=== PATIENT | male | born 1985 | race Hispanic/Latino ===

== ENCOUNTER 2020-12-01 00:12 | Emergency (ER) | payer MEDICAID, OTHER ==
[~2020-12-01] VITALS: Ht 154.9 cm; Wt 69.9 kg
== END 2020-12-01 00:50 | disposition left against medical advice (07) ==
LOC: EDBD 00:12 → EDH 00:12
DX: Z53.21 Procedure and treatment not carried out due to patient leaving prior to being seen by health care provider (principal)